=== PATIENT | female | born 1995 | race Caucasian/White ===

== ENCOUNTER 2022-04-25 00:55 | Emergency (ER) | payer BC, OTHER ==
[~2022-04-25] VITALS: Ht 157.5 cm; Wt 52.2 kg
--- NOTE | 2022-04-25 01:25 | NUR ---
TO ER BED 17. BIBFRIEND C/O ETOH & GLF. +HIT HEAD +ETOH. PT IS ALERT, RR EVEN AND NON LABORED. CONNECTED TO MONITOR. VSS. AWAITING MD ORDERS
--- NOTE | 2022-04-25 01:29 | NUR ---
Eze hurtado in [facility] - 04/25/22 at 0129 by JAYA PT TAKEN TO CT SCAN
--- NOTE | 2022-04-25 01:29 | NUR ---
PT TAKEN TO CT VIA ADAMARIS
--- NOTE | 2022-04-25 01:45 | NUR ---
PT BACK FROM CT, RECONNECTED TO MONITOR
--- NOTE | 2022-04-25 03:18 | NUR ---
Patient discharged to home in stable condition. RX Written and verbal after care instructions given. Patient verbalizes understanding of instruction.
[2022-04-25 03:19] VITALS: BP 108/73
== END 2022-04-25 03:20 | disposition home or self-care (01) ==
LOC: ER 01:15
DX: F10.129 Alcohol abuse with intoxication, unspecified (principal); R51.9 Headache, unspecified; Y90.9 Presence of alcohol in blood, level not specified
CPT/HCPCS: 70450-TC; 72125-TC